=== PATIENT | female | born 1985 | race Asian ===

== ENCOUNTER 2017-10-19 21:46 | Inpatient (IN) | payer BC ==
[2017-10-20 04:53] LABS: ABS Basophils 0 10^3/ul (0-0.2); ABS Eosinophils 0.1 10^3/ul (0-0.6); ABS Lymphocytes 1.6 10^3/ul (1.0-4.8); ABS Monocytes 0.7 10^3/ul (0-0.8); ABS Neutrophils 8.5 10^3/ul (1.5-7.7); ABS Nucleated RBC 0 10^3/ul; Eosinophil % 0.5 % (0-6); Hematocrit 36 % (35-47); Hemoglobin 12.2 g/dl (12.0-16.0); Lymphocyte % 14.9 % (25-47); Mean Corpuscular HGB Conc 34 g/dl (31-36); Mean Corpuscular Hemoglobin 29 pg (27-31); Mean Corpuscular Volume 87 fL (80-97); Mean Platelet Volume 8.9 um3 (7.4-10.4); Nucleated Red Blood Cells % 0; Platelet Count 205 10^3/ul (150-450); Red Blood Count 4.18 10^6/ul (4.0-5.4); Red Cell Distribution Width 15 % (10.5-15); White Blood Count 10.9 10^3/ul (3.5-10.8)
[2017-10-20] MEDS ORDERED: OBEPIDURAL* 250 ML EPIDURAL ONE (07:31)
[2017-10-20] MEDS ORDERED: fentaNYL* 50 MCG/ML 2 ML VIAL (100 MCG VIAL) ONE (07:46)
[2017-10-20] MEDS ORDERED: Oxytocin in LR* 20 UNITS/1,000 ML BAG IVPB SCH ×2 (08:00→17:00)
[2017-10-20] MEDS ORDERED: Famotidine TAB* 20 MG PO PRN (08:30)
[2017-10-20] MEDS ORDERED: Sodium Citrate/Citric Acid* 15 ML UDC PO PRN (08:30)
[2017-10-20] MEDS ORDERED: Phenylephrine IV* 40 MCG/ML 10 ML SYRINGE IV PUSH PRN ×2 (08:30)
[2017-10-20] MEDS ORDERED: OBEPIDURAL* 250 ML EPIDURAL SCH (09:00)
[2017-10-20] MEDS ORDERED: Glycerin ADULT SUPP PR PRN (16:07)
[2017-10-20] MEDS ORDERED: Acetaminophen TAB* 325 MG PO PRN (16:07)
[2017-10-20] MEDS ORDERED: Dibucaine 1% 28.35 GM TUBE PR PRN (16:07)
[2017-10-20] MEDS ORDERED: Witch Hazel PAD* JAR TOPICAL PRN (16:07)
[2017-10-20] MEDS ORDERED: Ibuprofen TAB* 600 MG PO PRN (16:07)
[2017-10-20] MEDS ORDERED: Ammonia Inhalant* 1 EA AMP ONE (18:06)
[2017-10-21 06:26] LABS: ABS Basophils 0 10^3/ul (0-0.2); ABS Eosinophils 0.1 10^3/ul (0-0.6); ABS Monocytes 1.1 10^3/ul (0-0.8); ABS Neutrophils 11.3 10^3/ul (1.5-7.7); ABS Nucleated RBC 0 10^3/ul; Eosinophil % 0.4 % (0-6); Hematocrit 26 % (35-47); Hemoglobin 8.7 g/dl (12.0-16.0); Lymphocyte % 13.7 % (25-47); Mean Corpuscular HGB Conc 34 g/dl (31-36); Mean Corpuscular Hemoglobin 29 pg (27-31); Mean Corpuscular Volume 87 fL (80-97); Mean Platelet Volume 8.1 um3 (7.4-10.4); Nucleated Red Blood Cells % 0.1; Platelet Count 176 10^3/ul (150-450); Red Blood Count 2.97 10^6/ul (4.0-5.4); Red Cell Distribution Width 14 % (10.5-15); White Blood Count 14.5 10^3/ul (3.5-10.8)
[2017-10-21] MEDS: Docusate CAP* 100 MG PO SCH ×5 (07:03→21:48)
--- NOTE | 2017-10-21 08:36 | PTEDU ---
Patient Name: OZZIE TOM OZZIE TOM selected video: Never Ever Shake a Baby to view on 10/21/2017 at 8:36:24 AM [id number]
[2017-10-21] MEDS: Simethicone TAB* 80 MG TAB.CHEW PO SCH ×2 (09:00→12:35)
[2017-10-21] MEDS: Ferrous Gluconate TAB* 324 MG TAB PO SCH ×2 (09:20→21:33)
[2017-10-22 08:21] VITALS: BP 107/62
[2017-10-22] MEDS: Docusate CAP* 100 MG PO SCH (08:46)
[2017-10-22] MEDS: Ferrous Gluconate TAB* 324 MG TAB PO SCH (08:46)
== END 2017-10-22 11:38 | disposition home or self-care (01) | DRG 560 ==
LOC: MCHOBOUT 21:46 → MCHOB 22:56
PROVIDERS: ADMIT Obstetrics & Gynecology; ATTEND Obstetrics & Gynecology
PROC: 10E0XZZ Delivery of Products of Conception, External Approach (ICD-10-PCS; principal; 2017-10-20)
PROC: 0KQM0ZZ Repair Perineum Muscle, Open Approach (ICD-10-PCS; 2017-10-20)
DX: O69.81X0 Labor and delivery complicated by cord around neck, without compression, not applicable or unspecified (principal); O70.1 Second degree perineal laceration during delivery; Z3A.39 39 weeks gestation of pregnancy; Z37.0 Single live birth
CPT/HCPCS: 36415; 84112; 85025; 86850; 86900; 86901; A9270-GY; J3010

== ENCOUNTER 2018-12-21 14:30 | Day surgery (SDC) | payer BC ==
[2018-12-21] MEDS ORDERED: NS 0.9% 1000 ML** 1,000 ML IV SCH ×2 (15:15→16:15)
[2018-12-21 16:04] LABS: ABS Lymphocytes 1.2 10^3/ul (1.0-4.8); ABS Monocytes 0.5 10^3/ul (0-0.8); ABS Neutrophils 6.4 10^3/ul (1.5-7.7); Eosinophil % 0.5 %; Hematocrit 37 % (35-47); Hemoglobin 12.1 g/dL (12.0-16.0); Lymphocyte % 14.3 %; Mean Corpuscular HGB Conc 33 g/dL (31-36); Mean Corpuscular Hemoglobin 27 pg (27-31); Mean Corpuscular Volume 81 fL (80-97); Mean Platelet Volume 8.8 fL (7.4-10.4); Nucleated Red Blood Cells % 0.1; Platelet Count 238 10^3/uL (150-450); Red Cell Distribution Width 15 % (10.5-15); White Blood Count 8.1 10^3/uL (3.5-10.8)
[2018-12-21 16:28] LABS: Albumin 4.3 g/dL (3.2-5.2); Albumin/Globulin Ratio 1.7 (1-3); BUN/Creatinine Ratio 12.9 (8-20); Calcium 9.4 mg/dL (8.6-10.3); EGFR African American 135.9 (>60); EGFR Non-African American 112.3 (>60); Globulin 2.6 g/dL (2-4); Potassium 3.6 mmol/L (3.5-5.0); Total Bilirubin 0.4 mg/dL (0.2-1.0); Total Protein 6.9 g/dL (6.4-8.9)
[2018-12-21] MEDS ORDERED: Bupivacaine 0.5% W/EPI SDV* 30 ML VIAL ONE (18:11)
[2018-12-21] MEDS ORDERED: ceFOXitin 2 GM IVPREMIX* 2 GM/50 ML BAG ONE (19:06)
[2018-12-21] MEDS ORDERED: ceFOXitin 2 GM IVPREMIX* 2 GM/50 ML BAG IVPB ONE (19:10)
[2018-12-21] MEDS ORDERED: Bupivacaine 0.5%* 50 ML VIAL ONE (19:19)
--- NOTE | 2018-12-21 19:43 | HP ---
HISTORY AND PHYSICAL: DATE OF ADMISSION: 12/21/18 CHIEF COMPLAINT: Spotting. HISTORY OF PRESENT ILLNESS: The patient is a 33-year-old 2, para 1-0-0- 1, with an incidental finding of a left ectopic measuring 8 weeks and 3 days with positive cardiac activity. The ectopic does appear to be in the fallopian tube and right and left ovaries appear to be separate. The endometrium is 2.5 cm with multiple cystic areas consistent with pseudosac. The uterus itself measures 6.2 x 5.2 x 7.2. The patient had no idea she was up until last p.m. when she took a test and it was positive. Did have some spotting. Does have some vague intermittent left-sided discomfort, but was not disturbed by this in any fashion, has been doing quite a lot of heavy activity of gardening outside. The patient comes in having had a full meal at 12:30 p.m. of rice and chicken and is waiting here on same-day surgery for the allotted time prior to proceeding with a laparoscopic left salpingectomy. PAST MEDICAL HISTORY: Notable for PCOS. PAST SURGICAL HISTORY: None. 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 ALLERGIES: No known drug allergies. FAMILY HISTORY: Mother and father are both alive and living in [place]. SOCIAL HISTORY: She is and denies tobacco or alcohol use. PHYSICAL EXAMINATION CONSTITUTIONAL: She is a pleasant female, alert and oriented, in no distress. VITAL SIGNS: Temp is 97.7, pulse is 87, respirations 16, O2 sat 99%, blood pressure 120/65. NECK: Supple, nontender. No thyromegaly appreciated. LUNGS: Clear to auscultation. Breath sounds were equal bilaterally. CARDIOVASCULAR: She has a regular rate and rhythm. Normal S1, S2. No murmurs , rubs, or gallops. ABDOMEN: Scaphoid. No hepatosplenomegaly appreciated. No rebound. No guarding. Nontender. No masses appreciated. PELVIC: Exam deferred until intraoperative time. EXTREMITIES: Nontender with no edema. LABORATORY DATA: Her CBC is pending. Metabolic panel was pending. Type and screen is pending. ASSESSMENT AND PLAN: The patient is a 33-year-old 2, para 1, with a left 8 plus week size ectopic with cardiac activity. The patient is not a candidate for methotrexate given positive cardiac activity. The plan is to proceed with a left salpingectomy. The patient is aware that there is a possible involvement of the left ovary, in which case a left oophorectomy would be performed. The patient is aware and accepts the risks to include, but not limited of surgery to infection, bleeding, damage to internal organs, pain, scarring, need for blood products, and is aware of the potential need in the future for in vitro fertilization or IVF procedure if there is evidence of scarring of the right fallopian tube. TIME SPENT: Length of time spent counseling the patient directly with her was greater than 20 minutes. [id number]/[facility] #: [id number] MIGUEL
[2018-12-21] MEDS ORDERED: Midazolam* 1 MG/ML 2 ML VIAL (2 MG) ONE (19:46)
[2018-12-21] MEDS ORDERED: fentaNYL* 50 MCG/ML 2 ML VIAL (100 MCG VIAL) ONE ×2 (19:55→20:19)
[2018-12-21] MEDS ORDERED: Rocuronium* 10 MG/ML VIAL ONE (19:55)
[2018-12-21] MEDS ORDERED: Ketorolac INJ* 30 MG/ML 1 ML VIAL ONE (20:17)
[2018-12-21] MEDS ORDERED: Succinylcholine* 20 MG/ML 10 ML VIAL ONE (20:17)
[2018-12-21] MEDS ORDERED: Dexamethasone IV* 4 MG/ML 1 ML (4 MG) ONE (20:17)
[2018-12-21] MEDS ORDERED: Ondansetron INJ* 2 MG/ML VIAL ONE (20:17)
[2018-12-21] MEDS ORDERED: Lidocaine 2% PF * 5 ML VIAL ONE (20:17)
[2018-12-21] MEDS ORDERED: Propofol* 10 MG/ML 20 ML BTL ONE (20:17)
[2018-12-21] MEDS ORDERED: DiMENhydriNATE IV* 50 MG/ML VIAL ONE (20:17)
[2018-12-21] MEDS ORDERED: HYDROmorphone INJ1* 1 MG/ML SYRINGE ONE (20:37)
[2018-12-21] MEDS ORDERED: Acetaminophen IV 1GM/100ML * 1,000 MG/100 ML VIAL IVPB ONE (21:10)
[2018-12-21] MEDS ORDERED: DiMENhydriNATE IV* 50 MG/ML VIAL IV PUSH PRN (21:10)
[2018-12-21] MEDS ORDERED: Naloxone* 0.4 MG/ML 1 ML VIAL IV PRN (21:10)
[2018-12-21] MEDS ORDERED: HYDROmorphone INJ1* 1 MG/ML SYRINGE IV PRN (21:10)
[2018-12-21 21:32] VITALS: BP 130/80
--- NOTE | 2018-12-22 21:17 | OP ---
DATE OF OPERATION: 12/21/18 - ROOM #342 DATE OF : 89 SURGEON: Ema Claire MD. ICT ANALYST: Dr. Ohara. PRE-OP DIAGNOSIS: Left ectopic . POST-OP DIAGNOSIS: Left ectopic . OPERATIVE PROCEDURE: Left salpingectomy, laparoscopic. ESTIMATED BLOOD LOSS: Minimal. URINE OUTPUT: 200 cc. FLUIDS: 1200 cc of crystalloid. FINDINGS: Findings revealed dilated left tube consistent with ectopic , normal appearing right tube and ovary, normal appearing bowel, normal appearing appendix, normal appearing liver edge, normal appearing left ovary, normal appearing uterus. No events of scaring or adhesions in the posterior cul -de-sac. COMPLICATIONS: None apparent. DISPOSITION: Stable to recovery room. DESCRIPTION OF PROCEDURE: The patient was placed in dorsal lithotomy position. The abdomen and vagina were prepped and draped in a sterile standard fashion. The patient was identified with universal protocol for correct procedure, patient, and position. Both a sterile speculum was placed and a Hulka clamp was placed. The sterile speculum was then removed. A Lamb catheter was placed for drainage of clear yellow urine. Attention was then focused on the abdomen. The infraumbilical area was infused with 0.5% Marcaine. An incision was made with an 11-scalpel blade. Fascia was identified, incised with a scalpel and extended superiorly and inferiorly. Stay sutures were placed of 0 Vicryl. A blunt Keyshawn trocar and trocar sheaths were then inserted. Pneumoperitoneum was created. Excellent placement was noted. An incision was made in the left lateral abdominal wall. 5 cc of 0.5% Marcaine was used. An incision was made and a 5 mm trocar and trocar sheaths were inserted without complications. Under direct visualization, this was repeated suprapubic nicholas and again 0.5% Marcaine was used. Incision was made with a scalpel and a 5 mm blunt probe and port was inserted above the pubic symphysis. The ectopic was identified and then using LigaSure the blood supply to the ectopic was coagulated and then incised along mesosalpinx for complete excision of the left fallopian tube. Cameras were then switched out for a 5-mm camera on the side port. A 10 mm Endo Catch bag was then placed for placement of the ectopic in the Endo Catch bag, which was then removed through the umbilical port site and noted to be intact without spillage. The trocar and trocar sheets were then reinserted. Visualization of the pedicle was then performed confirming excellent hemostasis and the findings were noted that there was a normal appendix, normal appearing bowel, and a liver edge. From an anterior and posterior reflection of the peritoneum, the uterus had a normal appearance. The right tube and ovary had normal appearance as well as the left ovary. At that point, the pneumoperitoneum was released. The 5 mm ports were then removed under direct visualization. The umbilical port was removed. The fascia itself was then reapproximated using 0 Vicryl in an interrupted fashion. The skin incision at the umbilicus was then reapproximated using 4-0 Monocryl in a subcuticular fashion as well as the two 5 mm ports were reapproximated with a 4-0 Monocryl in a subcuticular fashion. Mastisol and Steris were applied. Hulka clamp was removed. The patient was taken to recovery room in stable condition. [id number]/[facility] #: [id number] MIGUEL
== END 2018-12-21 21:55 | disposition home or self-care (01) ==
LOC: UNDOADMOB 14:30 → SSU 14:30 → OR 14:30 → SSU 14:38 → UNDODISOB 21:55 → OR 21:55
PROVIDERS: ATTEND Obstetrics & Gynecology
DX: O00.90 Unspecified ectopic pregnancy without intrauterine pregnancy (principal); Z3A.08 8 weeks gestation of pregnancy
CPT/HCPCS: 36415; 80053; 85025; 86850; 86900; 86901; 88305; G0378; J0330; J0694; J1100; J1170; J1240; J1885; J2250; J2405; J2704; J3010; J3490